=== PATIENT | female | born 1995 | race Two or more races ===

== ENCOUNTER 2023-10-10 18:13 | Emergency (ER) | payer MEDICAID ==
[~2023-10-10] VITALS: Ht 165.1 cm; Wt 78.2 kg
[2023-10-10 18:23] VITALS: TEMP 97.8
[2023-10-10 19:02] LABS: BASOPHILS % (AUTO) 0.4 % (0-1); EOSINOPHILS # (AUTO) 0.2 X10'3 (0-0.9); EOSINOPHILS % (AUTO) 2.1 % (0-6); HEMATOCRIT 41.4 % (35.0-45.0); HEMOGLOBIN 13.8 g/dl (12.0-16.0); LYMPHOCYTES # (AUTO) 2.7 X10'3 (1.1-4.8); LYMPHOCYTES % (AUTO) 30.4 % (21-51); MEAN CORPUSCULAR HGB CONC 33.4 g/dL (33.0-36.5); MEAN PLATELET VOLUME 9.3 FL (7.4-10.4); MONOCYTES # (AUTO) 0.5 X10'3 (0-0.9); MONOCYTES % (AUTO) 6.1 % (2-12); NEUTROPHILS # (AUTO) 5.4 X10'3 (1.8-7.7); PLATELET COUNT 226 X10'3 (140-440); RED CELL DISTRIBUTION WIDTH 13.1 % (11.5-14.5); WHITE BLOOD COUNT 8.9 X10'3 (4.5-11.0)
[2023-10-10 19:23] LABS: ALANINE AMINOTRANSFERASE 18 U/L (12-78); ALBUMIN 3.9 G/DL (3.4-5.0); ALBUMIN/GLOBULIN RATIO 1.1 (1.1-1.5); ALKALINE PHOSPHATASE 67 IU/L (46-116); AMYLASE 45 U/L (25-115); ANION GAP 8 (8-16); ASPARTATE AMINO TRANSFERASE 9 U/L (10-37); BILIRUBIN,TOTAL 0.3 MG/DL (0.1-1.0); BLOOD UREA NITROGEN 13 MG/DL (7-18); BUN/CREATININE RATIO 22.4 (10.0-20.0); CALCIUM 8.8 MG/DL (8.5-10.1); CHLORIDE 105 MMOL/L (99-107); CREATININE 0.58 MG/DL (0.40-0.90); GLUCOSE 115 MG/DL (70-104); LIPASE 24 U/L (16-77); POTASSIUM 3.8 MMOL/L (3.5-5.1); SODIUM 137 MMOL/L (135-145); TOTAL CARBON DIOXIDE 24.5 MMOL/L (24-32); TOTAL PROTEIN 7.4 G/DL (6.4-8.2); eCRCL 131 ML/MIN; eGFR > 90 ML/MIN
[2023-10-10 21:52] LABS: H PYLORI ANTIBODY POSITIVE (Neg)
[2023-10-10] MEDS ORDERED: CLAR500T22 PO (22:09)
[2023-10-10] MEDS ORDERED: AMOX-101 PO (22:09)
[2023-10-10] MEDS ORDERED: OMEP40CA21 PO (22:09)
[2023-10-10 22:43] VITALS: BP 132/80; PULSE 73; RESP 14; O2SAT 100
[2023-10-10 22:48] LABS: BILIRUBIN,URINE NEGATIVE (Neg); CLARITY,URINE CLEAR (Clear); COLOR,URINE YELLOW (Yellow); GLUCOSE, URINE NEGATIVE (Neg); KETONES,URINE NEGATIVE (Neg); LEUKOCYTE ESTERASE ,URINE NEGATIVE (Neg); NITRITES, URINE NEGATIVE (Neg); OCCULT BLOOD,URINE NEGATIVE (Neg); PROTEIN,URINE NEGATIVE (Neg); UROBILINOGEN,URINE 0.2 E.U/dL (0.2-1.0)
[2023-10-10 22:49] LABS: UA COLLECTION TYPE CLN CATCH MIDSTREAM; URINE HCG NEGATIVE (NEG)
== END 2023-10-10 23:19 | disposition home or self-care (01) ==
LOC: ER 18:13
DX: R10.13 Epigastric pain (principal); B96.81 Helicobacter pylori [H. pylori] as the cause of diseases classified elsewhere; Z56.0 Unemployment, unspecified; Z88.8 Allergy status to other drugs, medicaments and biological substances; Z88.1 Allergy status to other antibiotic agents
CPT/HCPCS: 36415; 80053; 81003; 81025; 82150; 83690; 85025; 86677; 99283

== ENCOUNTER 2024-06-06 20:27 | Emergency (ER) | payer MEDICAID ==
[~2024-06-06] VITALS: Ht 165.1 cm; Wt 75.7 kg
[2024-06-06] MEDS: ketorolac trometh 30MG/ML vial 30 MG/ML VIAL IM ONE (20:59)
[2024-06-06] MEDS ORDERED: DICL50TA8 PO (20:59)
[2024-06-06 21:00] VITALS: PULSE 75
[2024-06-06 21:01] VITALS: BP 135/87; RESP 16; TEMP 97.8; O2SAT 99
== END 2024-06-06 21:39 | disposition home or self-care (01) ==
LOC: ER 20:28
DX: S46.812A Strain of other muscles, fascia and tendons at shoulder and upper arm level, left arm, initial encounter (principal); K21.9 Gastro-esophageal reflux disease without esophagitis; Z88.1 Allergy status to other antibiotic agents; Z88.8 Allergy status to other drugs, medicaments and biological substances; Z56.0 Unemployment, unspecified; X58.XXXA Exposure to other specified factors, initial encounter; Y93.89 Activity, other specified; Y92.89 Other specified places as the place of occurrence of the external cause; Y99.8 Other external cause status
CPT/HCPCS: 96372; 99283; J1885

== ENCOUNTER 2024-08-14 12:48 | Emergency (ER) | payer MEDICAID ==
[~2024-08-14] VITALS: Ht 165.1 cm; Wt 72.7 kg
[~2024-08-14 12:48] MED LIST: DICL50TA8 PO
[2024-08-14 13:53] LABS: STREP A SCREEN NEGATIVE (Neg)
[2024-08-14 14:04] VITALS: BP 138/80; PULSE 85; RESP 16; TEMP 98.8; O2SAT 98
== END 2024-08-14 14:06 | disposition home or self-care (01) ==
LOC: ER 12:49
DX: J02.9 Acute pharyngitis, unspecified (principal); K21.9 Gastro-esophageal reflux disease without esophagitis; Z88.1 Allergy status to other antibiotic agents; Z88.5 Allergy status to narcotic agent; Z56.0 Unemployment, unspecified
CPT/HCPCS: 87081; 87880; 99283